=== PATIENT | female | born 1930 | race Caucasian/White ===

== ENCOUNTER → 2016-07-27 | Outpatient (REF) | payer MEDICARE, OTHER ==
[2016-07-27 12:58] LABS: BASO % 0.3 % (0.0-1.0); EOS # 0.1 K/mm3 (0.0-0.50); EOS % 2.1 % (0.0-3.0); LARGE UNSTAINED CELL # 0.2 K/mm3 (0.0-0.4); LARGE UNSTAINED CELL % 2.4 % (0.0-4.0); LYMPH # 1.7 K/mm3 (1.5-4.5); LYMPH % 27.6 % (24.0-44.0); MEAN CORPUSCULAR HEMOGLOBIN 31.2 pg (27.0-33.0); MEAN CORPUSCULAR HGB CONC 32.9 g/dl (32.0-36.5); MEAN CORPUSCULAR VOLUME 94.7 fl (80.0-96.0); MONO # 0.4 K/mm3 (0.0-0.8); MONO % 5.7 % (0.0-5.0); NEUTROPHILS # 3.8 K/mm3 (1.8-7.7); NEUTROPHILS % 61.9 % (36.0-66.0); PLATELET COUNT, AUTOMATED 344 k/mm3 (150-450); RED CELL DISTRIBUTION WIDTH 12.9 % (11.5-14.5); WHITE BLOOD COUNT 6.1 K/mm3 (4.0-10.0)
[2016-07-27 13:25] LABS: ALBUMIN 4.1 GM/DL (3.2-5.2); ALBUMIN/GLOBULIN RATIO 1.46 (1.00-1.93); ALKALINE PHOSPHATASE 85 U/L (45-117); ALT/SGPT 27 U/L (12-78); ANION GAP 9 MEQ/L (8-16); AST/SGOT 11 U/L (15-37); BILIRUBIN,TOTAL 0.6 MG/DL (0.2-1.0); BLOOD UREA NITROGEN 17 MG/DL (7-18); CALCIUM LEVEL 9.3 MG/DL (8.8-10.2); CARBON DIOXIDE LEVEL 27 MEQ/L (21-32); CHLORIDE LEVEL 105 MEQ/L (98-107); CHOLESTEROL LEVEL 215 MG/DL (<200); CREATININE FOR GFR 0.84 MG/DL (0.55-1.02); GLOMERULAR FILTRATION RATE > 60.0 (>32); GLUCOSE, FASTING 95 MG/DL (83-110); POTASSIUM SERUM 4.7 MEQ/L (3.5-5.1); SODIUM LEVEL 141 MEQ/L (136-145); TOTAL PROTEIN 6.9 GM/DL (6.4-8.2); TRIGLYCERIDES LEVEL 136 MG/DL (<150)
== END ==
LOC: M SFHCADAM 09:57
PROVIDERS: ATTEND Family Medicine
DX: Z00.00 Encounter for general adult medical examination without abnormal findings (principal); I10 Essential (primary) hypertension; E78.5 Hyperlipidemia, unspecified; Z23 Encounter for immunization; Z79.82 Long term (current) use of aspirin; Z79.899 Other long term (current) drug therapy
CPT/HCPCS: 80053; 80061; 85025; 90715; G0463

== ENCOUNTER → 2016-08-27 | Outpatient (REF) | payer MEDICARE, OTHER | LOC: M SFHCADAM 12:13 | PROVIDERS: ATTEND Family Medicine | DX: I10 Essential (primary) hypertension (principal) | CPT/HCPCS: 82043; G0463 ==

== ENCOUNTER → 2017-01-15 | Outpatient (CLI) | payer MEDICARE, OTHER ==
--- NOTE | 2017-01-15 13:05 | REP ---
CT abdomen pelvis for abdominal aortic aneurysm: Studies performed without IV and oral contrast: Comparison is 10/27/2013. There is an infrarenal abdominal aortic aneurysm today measuring 4.7 AP diameter (previously 4.0 cm). There is no periaortic hematoma. There is calcified vascular atheroma throughout the abdominal aorta as previously. The visualized lung paige are unremarkable. The unenhanced hepatic parenchyma, pancreas and spleen are normal size and unremarkable. There is a gallbladder calculus as previously. The gallbladder is otherwise unremarkable. The adrenals are unremarkable and unchanged. There are left renal cysts, unchanged. There are no masses. The right kidney is unremarkable. There is no hydronephrosis. The bowel and mesentery are unremarkable. Appendix: The appendix is unremarkable. The bladder is nondistended and cannot be evaluated. There is a hysterectomy. Vaginal cuff and adnexa are unremarkable except for phleboliths. There is no adenopathy or ascites. The pelvic bowel loops are unremarkable. There is grade 1 compression deformity of the superior endplate of the T11 vertebral body, unchanged. Impression: There is an abdominal aortic aneurysm today measuring 4.7 cm AP diameter. There is no periaortic hematoma. Signed by Erwin Sidhu MD 01/15/2017 12:56 P
== END ==
LOC: M RAD 12:03
PROVIDERS: ATTEND Surgery Vascular Surgery
DX: I71.4 Abdominal aortic aneurysm, without rupture (principal)

== ENCOUNTER 2017-09-18 08:23 | Emergency (ER) | payer MEDICARE, OTHER | END 2017-09-18 09:55 | disposition home or self-care (01) | LOC: M ED 08:23 | DX: R07.89 Other chest pain (principal); W01.190A Fall on same level from slipping, tripping and stumbling with subsequent striking against furniture, initial encounter; Y92.9 Unspecified place or not applicable; Y93.9 Activity, unspecified; I10 Essential (primary) hypertension; E78.5 Hyperlipidemia, unspecified; I71.4 Abdominal aortic aneurysm, without rupture; Z87.891 Personal history of nicotine dependence; Z79.82 Long term (current) use of aspirin; Z79.899 Other long term (current) drug therapy | CPT/HCPCS: 71046 ==

== ENCOUNTER → 2018-01-04 | Outpatient (REF) | payer MEDICARE, OTHER ==
[2018-01-04 12:46] LABS: BASO % 0.5 % (0.0-1.0); EOS # 0.1 10^3/uL (0.0-0.50); EOS % 1.5 % (0.0-3.0); HEMATOCRIT 34.5 % (36.0-47.0); HEMOGLOBIN 11.1 g/dl (12.0-15.5); IMMATURE GRANULOCYTE % 0.2 % (0-3.0); LYMPH # 1.7 10^3/uL (1.5-4.5); LYMPH % 25.3 % (24.0-44.0); MEAN CORPUSCULAR HEMOGLOBIN 29.9 pg (27.0-33.0); MEAN CORPUSCULAR HGB CONC 32.2 g/dl (32.0-36.5); MONO # 0.4 10^3/uL (0.0-0.8); MONO % 6.1 % (0.0-5.0); NEUTROPHILS # 4.4 10^3/uL (1.8-7.7); NEUTROPHILS % 66.4 % (36.0-66.0); PLATELET COUNT, AUTOMATED 313 10^3/uL (150-450); RED BLOOD COUNT 3.71 10^6/uL (4.00-5.40); RED CELL DISTRIBUTION WIDTH 14.4 % (11.5-14.5); WHITE BLOOD COUNT 6.6 10^3/uL (4.0-10.0)
[2018-01-04 13:29] LABS: ALBUMIN 3.9 GM/DL (3.2-5.2); ALKALINE PHOSPHATASE 80 U/L (45-117); ALT/SGPT 18 U/L (12-78); ANION GAP 10 MEQ/L (8-16); AST/SGOT 8 U/L (7-37); BILIRUBIN,TOTAL 0.8 MG/DL (0.2-1.0); BLOOD UREA NITROGEN 11 MG/DL (7-18); CARBON DIOXIDE LEVEL 27 MEQ/L (21-32); CHLORIDE LEVEL 99 MEQ/L (98-107); CREATININE FOR GFR 0.82 MG/DL (0.55-1.30); GLOMERULAR FILTRATION RATE > 60.0 (>32); GLUCOSE, FASTING 89 MG/DL (70-100); POTASSIUM SERUM 4.9 MEQ/L (3.5-5.1); SODIUM LEVEL 136 MEQ/L (136-145); TOTAL PROTEIN 6.5 GM/DL (6.4-8.2)
== END ==
LOC: M SFHCADAM 08:31
DX: I10 Essential (primary) hypertension (principal)
CPT/HCPCS: 80053

== ENCOUNTER → 2018-08-01 | Outpatient (REF) | payer MEDICARE, OTHER ==
[~2018-08-01] MED LIST: ASPI81TA21 PO; CART120C PO; OLME40TA PO; PRAV40TA2 PO
--- NOTE | 2018-08-01 15:01 | REP ---
PARTIAL LUMBAR SPINE, THREE VIEWS: HISTORY: Back injury. There is no acute fracture. The L4-5 and L5-S1 intervertebral discs are decreased in height consistent with degeneration. There is 6 mm of grade 1 spondylolisthesis of L4 on L5. The patient is status post stenting of an abdominal aortic aneurysm. IMPRESSION: Degenerative change as described above. Electronically Signed by Juan Hernandez MD 08/01/2018 03:09 P
== END ==
LOC: M ADAMS 11:59
PROVIDERS: ATTEND Physician Assistant
DX: M51.36 Other intervertebral disc degeneration, lumbar region (principal)

== ENCOUNTER → 2018-10-07 | Outpatient (REF) | payer MEDICARE, OTHER ==
[2018-10-07 13:21] LABS: BASO % 0.3 % (0.0-1.0); EOS % 0.5 % (0.0-3.0); HEMATOCRIT 36.3 % (36.0-47.0); HEMOGLOBIN 11.9 g/dl (12.0-15.5); LYMPH # 1.4 10^3/uL (1.5-4.5); LYMPH % 21.4 % (24.0-44.0); MEAN CORPUSCULAR HEMOGLOBIN 31.1 pg (27.0-33.0); MEAN CORPUSCULAR HGB CONC 32.8 g/dl (32.0-36.5); MEAN CORPUSCULAR VOLUME 94.8 fl (80.0-96.0); MONO # 0.4 10^3/uL (0.0-0.8); MONO % 6.2 % (0.0-5.0); NEUTROPHILS # 4.7 10^3/uL (1.8-7.7); NEUTROPHILS % 71.3 % (36.0-66.0); PLATELET COUNT, AUTOMATED 339 10^3/uL (150-450); RED BLOOD COUNT 3.83 10^6/uL (4.00-5.40); WHITE BLOOD COUNT 6.6 10^3/uL (4.0-10.0)
[2018-10-07 13:44] LABS: ALBUMIN 3.8 GM/DL (3.2-5.2); ALT/SGPT 22 U/L (12-78); BILIRUBIN,TOTAL 0.8 MG/DL (0.2-1.0); BLOOD UREA NITROGEN 11 MG/DL (7-18); CALCIUM LEVEL 9.1 MG/DL (8.8-10.2); CARBON DIOXIDE LEVEL 28 MEQ/L (21-32); CHLORIDE LEVEL 99 MEQ/L (98-107); CREATININE FOR GFR 0.79 MG/DL (0.55-1.30); FREE T4 1.11 NG/DL (0.76-1.46); GLOMERULAR FILTRATION RATE > 60.0 (>32); GLUCOSE, FASTING 103 MG/DL (70-100); POTASSIUM SERUM 4.9 MEQ/L (3.5-5.1); SODIUM LEVEL 133 MEQ/L (136-145); TOTAL PROTEIN 6.7 GM/DL (6.4-8.2); VITAMIN B12 LEVEL 361 PG/ML (247-911)
== END ==
LOC: M SFHCADAM 09:32
PROVIDERS: ATTEND Family Medicine
DX: R41.89 Other symptoms and signs involving cognitive functions and awareness (principal)
CPT/HCPCS: 80053; 82607; 84439; 84443; 85025; 86780; G0463

== ENCOUNTER 2019-07-10 12:04 | Observation (INO) | payer MEDICARE, OTHER ==
[~2019-07-10] VITALS: Ht 154.9 cm; Wt 61.4 kg
--- NOTE | 2019-07-10 12:52 | REP ---
Clinical: Trauma. Head injury. Findings: Age-related atrophy with periventricular leukomalacia and microvascular ischemic changes are appreciated. The ventricles and sulci are symmetric. Chavez-white differentiation is maintained. There is no evidence for acute intracranial hemorrhage, mass/mass effect, pathology or infarction. No extra-axial fluid collection. Calvarium is intact. Paranasal sinuses and mastoid air cells are clear. Impression: Age related atrophy and microvascular ischemic changes. No acute intracranial hemorrhage, infarction, or mass/mass effect. Electronically Signed by Parker Webber MD 07/10/2019 12:44 P
--- NOTE | 2019-07-10 12:54 | REP ---
Clinical: Trauma. Head injury. Technique: Axial noncontrast images from the skull base to the thoracic inlet with coronal and sagittal re-formations. Findings: Age-related osteopenia and advanced multilevel degenerative changes include osteophytosis, endplate sclerosis/heterogeneity, disc space narrowing, and facet arthropathy. Alignment is maintained. No obvious acute fracture / compression injury or subluxation. Spinal canal appears relatively patent. Posterior elements and spinous processes are intact. Paravertebral soft tissues within normal limits. Impression: Osteopenia and advanced multilevel degenerative spondylosis. No acute fracture / compression injury or subluxation. Electronically Signed by Parker Webber MD 07/10/2019 12:45 P
[2019-07-10] MEDS ORDERED: ACETAMINOPHEN TAB 650MG DOSE (2X325MG) PO ONE (13:15)
[2019-07-10 13:51] LABS: BASO % 0.4 % (0.0-1.0); EOS # 0.1 10^3/uL (0.0-0.5); EOS % 1.1 % (0.0-3.0); HEMATOCRIT 38.3 % (36.0-47.0); HEMOGLOBIN 12.3 g/dl (12.0-15.5); LYMPH % 18.3 % (24.0-44.0); MEAN CORPUSCULAR HEMOGLOBIN 30.5 pg (27.0-33.0); MEAN CORPUSCULAR HGB CONC 32.1 g/dl (32.0-36.5); MONO # 0.3 10^3/uL (0.0-0.8); MONO % 5.2 % (0.0-5.0); NEUTROPHILS % 74.4 % (36.0-66.0); PLATELET COUNT, AUTOMATED 334 10^3/uL (150-450); RED BLOOD COUNT 4.03 10^6/uL (4.00-5.40); WHITE BLOOD COUNT 5.4 10^3/uL (4.0-10.0)
--- NOTE | 2019-07-10 14:04 | REP ---
THORACIC SPINE SERIES: AP and lateral views of the thoracic spine performed. There is an old mild compression deformity of T5 unchanged since the lateral chest radiograph of 09/18/2017. No new fracture or dislocation is seen. There is normal thoracic kyphosis and alignment. There is moderate diffuse spurring. There is mild diffuse disc space narrowing and subchondral sclerosis. There is mild curvature toward the right. The posterior elements are intact. IMPRESSION: Degenerative changes without acute fracture or dislocation. Electronically Signed by Erwin Chavez MD 07/10/2019 02:52 P
--- NOTE | 2019-07-10 14:08 | REP ---
LUMBOSACRAL SPINE: Five views of the lumbosacral spine are performed and compared to a prior study of 08/01/2018. AP view is limited due to overlying metallic aortobiiliac stent. There is mild compression of L4 which is new compared to the prior study. Mild anterior listhesis of L4 on L5 is unchanged. No other acute fracture or dislocation is seen. There is mild diffuse spurring. There is mild disc space narrowing and subchondral sclerosis of L5-S1. There is diffuse sclerosis and spurring at the posterior facet joints. IMPRESSION: Mild compression of L4 is new compared to a prior study of 08/01/2018, exact age is indeterminate. There are mild degenerative changes as well. Electronically Signed by Erwin Chavez MD 07/10/2019 02:52 P
--- NOTE | 2019-07-10 14:08 | REP ---
PELVIS, SINGLE VIEW: Single AP view of the pelvis is performed. No fracture or dislocation is seen. There is moderate degenerative joint disease of the right hip, with moderate diffuse joint space narrowing, subchondral sclerosis, and spurring. IMPRESSION: No acute fracture or dislocation. Electronically Signed by Erwin Chavez MD 07/10/2019 02:52 P
--- NOTE | 2019-07-10 14:08 | REP ---
LEFT HIP, TWO VIEWS: There is no evidence of an acute fracture, dislocation or intrinsic bone disease. IMPRESSION: No fracture or dislocation. Electronically Signed by Erwin Chavez MD 07/10/2019 02:52 P
--- NOTE | 2019-07-10 14:09 | REP ---
LEFT LOWER LEG, AP AND LATERAL: AP and lateral views of the left lower leg performed. No acute fracture or dislocation is seen. There are mild scattered vascular calcifications in the soft tissues. IMPRESSION: No fracture or dislocation. Electronically Signed by Erwin Chavez MD 07/10/2019 02:52 P
[2019-07-10] MEDS ORDERED: LIDOCAINE 5% (LIDODERM) PATCH TD ONE (16:30)
--- NOTE | 2019-07-10 16:39 | HPE ---
DATE OF ADMISSION: 07/10/2019 PRIMARY CARE PROVIDER: Dr. Simental CHIEF COMPLAINT: L4 compression fracture. HISTORY: I was called to admit Barbara Garcia for L4 compression fraction. Per the emergency room, she has intractable pain. Per the patient, she is essentially pain-free but family members say that they do not she is able to take care of herself at home tonight. She will be admitted for observation. She has a past medical history of hyperlipidemia. She is on pravastatin 20 mg daily. Hypertensive heart disease for which she takes diltiazem and losartan. She had an abdominal aortic aneurysm repaired via endovascular stent at [facility] March 2017, last seen by them December 2018. She has a history of gastroesophageal (GE) reflux, diverticulosis status post partial colon resection, colonoscopy November 2013 with normal anastomosis and no polyps. ALLERGIES: None known. MEDICATIONS: - aspirin 81 mg daily - pravastatin 20 mg daily - diltiazem extended release 120 mg daily - losartan 50 mg daily PAST SURGICAL HISTORY: Hysterectomy, partial colectomy, abdominal aortic aneurysm endovascular repair in March 2017, colonoscopy November 2013. FAMILY HISTORY: Noncontributory. She is 88. SOCIAL HISTORY: She quit smoking many years ago. She lives alone and has an attentive family. No alcohol. REVIEW OF SYSTEMS: No trouble with bowels or bladder. She apparently slipped and fell causing the fracture. She does not have any history of falls. She underwent fall risk screening five days ago and fall risk was low. PHYSICAL EXAMINATION: Blood pressure 170/87, pulse of 81, respiratory rate 18, 97 degrees, 97% oxygen saturation. Blood pressure when she was in our office, not in pain from the fracture, was 128/74. GENERAL APPEARANCE: Elderly, frail, lying in bed, in no distress, alert and conversant. HEENT: Unremarkable. LUNGS: Clear. HEART: Regular rate and rhythm. There is a systolic ejection murmur. ABDOMEN: Soft, nontender. No masses. Low back is nontender to palpate. Normal strength in the legs. Normal sensation in the legs. Good distal pulses. No peripheral edema. LABORATORY DATA: CBC unremarkable. Electrolytes: Sodium 143, potassium 5, BUN 13, creatinine 0.7. Lumbosacral spine film shows a new mild compression fracture of L4. X-rays of the left hip, pelvis, thoracic spine, left tibia/fibula, cervical spine do not show any further fractures. CT of the head shows atrophy which is age appropriate. IMPRESSION: 1. Mild L4 compression fracture. The patient is being admitted to an observation bed. She indicates to me that she is not having any pain but family members indicate that she is and they feel that she would be safer admitted overnight. I will order a Lidoderm patch to her lumbar spine area, start Miacalcin spray, order physical therapy, anticipate discharge in the morning. 2. Hypertension. Her blood pressure was elevated in the emergency room. I think this is situational. Blood pressure control in the office on her current regimen is excellent with her last five recorded blood pressures being between 120 and 140 over 70-80. Therefore, I am not adjusting her medications. 3. Hyperlipidemia. Continue pravastatin.
[2019-07-10] MEDS ORDERED: LOSA50TA88 PO (16:52)
[2019-07-10] MEDS ORDERED: PRAV20TA2 PO (16:52)
[2019-07-10] MEDS ORDERED: PRES10CA2 PO (16:53)
[2019-07-10 18:15] VITALS: BP 116/110
[2019-07-10 22:04] VITALS: BP 152/80
[2019-07-10] MEDS: ACETAMINOPHEN 500 MG TAB PO PRN (22:52)
[2019-07-11] MEDS ORDERED: **NOTE PATIENT COMMENT** MISC XX SCH (06:00)
[2019-07-11 06:24] VITALS: BP 134/70
[2019-07-11 07:23] LABS: HEMATOCRIT 36.4 % (36.0-47.0); HEMOGLOBIN 11.4 g/dl (12.0-15.5); MEAN CORPUSCULAR HEMOGLOBIN 29.7 pg (27.0-33.0); MEAN CORPUSCULAR HGB CONC 31.3 g/dl (32.0-36.5); MEAN CORPUSCULAR VOLUME 94.8 fl (80.0-96.0); PLATELET COUNT, AUTOMATED 306 10^3/uL (150-450); RED BLOOD COUNT 3.84 10^6/uL (4.00-5.40); WHITE BLOOD COUNT 4.6 10^3/uL (4.0-10.0)
[2019-07-11 07:41] LABS: BLOOD UREA NITROGEN 9 MG/DL (7-18); CALCIUM LEVEL 8.7 MG/DL (8.8-10.2); CARBON DIOXIDE LEVEL 29 MEQ/L (21-32); CHLORIDE LEVEL 103 MEQ/L (98-107); CREATININE FOR GFR 0.71 MG/DL (0.55-1.30); GLOMERULAR FILTRATION RATE > 60.0 (>32); GLUCOSE, FASTING 89 MG/DL (70-100); POTASSIUM SERUM 3.6 MEQ/L (3.5-5.1); SODIUM LEVEL 138 MEQ/L (136-145)
[2019-07-11] MEDS ORDERED: LIDOCAINE 5% (LIDODERM) PATCH TD SCH (09:00)
[2019-07-11] MEDS: CALCITONIN NASAL SPRAY 3.7 ML BTL SCH (09:56)
[2019-07-11] MEDS: LOSARTAN 50 MG TAB PO SCH (09:57)
--- NOTE | 2019-07-11 11:18 | IPNPDOC ---
Text Note Date of Service The patient was seen on 07/11/19. NOTE SUBJECTIVE: Patient is examined today, she stated that she had very minimal back pain, denied any chest pain, denies any breathing difficulty, had no over night activities OBJECTIVE: PHYSICAL EXAMINATION: GENERAL APPEARANCE: Alert no acute distress. Elderly female, resting comfortably in bed. HEART: Normal S1, S2. No murmurs, no rubs, no gallops ABDOMEN: Soft. No masses. Bowel sounds are present. TRUNK/SPINE:Straight. EXTREMITIES: Moves all extremities equally. No gross deformities. LABORATORY DATA: Please see below. IMAGING: Lumbosacral spine film shows a new mild compression fracture of L4. X-rays of the left hip, pelvis, thoracic spine, left tibia/fibula, cervical spine do not show any further fractures. CT of the head shows atrophy which is age appropriate. ASSEMENT AND PLAN: Patient is a 88-year-old female with a past medical history significant for hypertensive heart disease, hyperlipidemia, reflux, diverticulosis, admitted for intractable pain due to L4 compression fracture. Mild L4 compression fracture. --Pain control with Lidoderm patch, as well as Miacalcin spray, and Tylenol --Home safety evaluation was performed by physical therapy today, it was recommended patient will need 24-hour home care, will attempt to coordinate this prior to discharge. #Hypertension. -Continue home medication #Hyperlipidemia. -Continue home medication #DVT -TEDS VS,Fishbone, I+O VS, Fishbone, I+O Laboratory Tests 07/10/19 13:21 07/11/19 06:57 Vital Signs Date Time Temp Pulse Resp B/P (MAP) Pulse Ox O2 Delivery O2 Flow Rate FiO2 07/11/19 09:57 69 134/70 07/11/19 06:24 97.1 18 98 Room Air I&O- Last 24 Hours up to 6 AM 07/11/19 06:00 Intake Total 330 ml Output Total 0 ml Balance 330 ml GME ATTESTATION GME ATTESTATION My faculty preceptor for this patient encounter was physically present during the encounter and was fully available. All aspects of the patient interview, examination, medical decision making process, and medical care plan development were reviewed and approved by the faculty preceptor. The faculty preceptor is aware and concurs with the plan as stated in the body of this note and will attest to such by his/her cosignature. KADEN MARLOW DO Jul 11, 2019 11:18
[2019-07-11 14:00] VITALS: BP 139/69
[2019-07-11] MEDS ORDERED: LIDO1.1P TOP (14:04)
[2019-07-11] MEDS ORDERED: CALC20SPR (14:09)
[2019-07-11] MEDS: ACETAMINOPHEN 500 MG TAB PO PRN (15:49)
[2019-07-11] MEDS: LIDOCAINE 5% (LIDODERM) PATCH TD SCH (20:55)
[2019-07-11] MEDS: PRAVASTATIN 20 MG TAB PO SCH (20:55)
[2019-07-11 22:00] VITALS: BP 136/68
[2019-07-12 06:00] VITALS: BP 139/79
[2019-07-12] MEDS: ACETAMINOPHEN 500 MG TAB PO PRN ×3 (06:17→20:18)
[2019-07-12] MEDS: CALCITONIN NASAL SPRAY 3.7 ML BTL SCH (08:51)
[2019-07-12] MEDS: LOSARTAN 50 MG TAB PO SCH (08:52)
[2019-07-12] MEDS: **NOTE PATIENT COMMENT** MISC XX SCH (08:54)
[2019-07-12] MEDS: ANALGESIC BALM CRM 120 GM TOP SCH ×3 (13:21→20:17)
[2019-07-12 14:00] VITALS: BP 141/73
--- NOTE | 2019-07-12 14:03 | IPNPDOC ---
Text Note Date of Service The patient was seen on 07/12/19. NOTE SUBJECTIVE: Patient was examined in her room. She complained of significant back pain. She stated that she is able to walk around, and that helps her pain. She rated her pain 10 out of 10 on pain scale. OBJECTIVE: PHYSICAL EXAMINATION: GENERAL APPEARANCE: Pleasant elderly female, sitting comfortably in a chair, speaking on the phone, HEART: Normal S1, S2. No murmurs, no rubs, no gallops ABDOMEN: Soft. No masses. Bowel sounds are present. TRUNK/SPINE:Straight. EXTREMITIES: Moves all extremities equally. No gross deformities. LABORATORY DATA: Please see below. IMAGING: Lumbosacral spine film shows a new mild compression fracture of L4. X-rays of the left hip, pelvis, thoracic spine, left tibia/fibula, cervical spine do not show any further fractures. CT of the head shows atrophy which is age appropriate. ASSEMENT AND PLAN: Patient is a 88-year-old female with a past medical history significant for hypertensive heart disease, hyperlipidemia, reflux, diverticulosis, admitted for intractable pain due to L4 compression fracture. Mild L4 compression fracture. --Pain control with Lidoderm patch, as well as Miacalcin spray, and Tylenol --Added daytime BenGay 3 times a day to her back pain regimen. --Home safety evaluation was performed by physical therapy today, it was recommended patient will need 24-hour home care --Family expressed a desire to with meet with [facility], to discuss placement, however patient does not appear to be receptive to that idea. Family is under the expectation that Medicare will cover 24-hour in-home healthcare, this was explained to patient that it was not a possibility. Attending, Dr. Soto encourage family to come together and schedule who is willing to stay with the patient, the suggestion was not met with enthusiasm #Hypertension. -Continue home medication #Hyperlipidemia. -Continue home medication #DVT -TEDS Disposition --Likely discharge tomorrow if patient family is agreeable Blank MARTINES, I+O VSBlank, I+O Vital Signs Date Time Temp Pulse Resp B/P (MAP) Pulse Ox O2 Delivery O2 Flow Rate FiO2 07/12/19 08:51 76 139/68 07/12/19 06:00 97.6 18 99 Room Air I&O- Last 24 Hours up to 6 AM 07/12/19 06:00 Intake Total 1270 ml Balance 1270 ml GME ATTESTATION GME ATTESTATION My faculty preceptor for this patient encounter was physically present during the encounter and was fully available. All aspects of the patient interview, examination, medical decision making process, and medical care plan development were reviewed and approved by the faculty preceptor. The faculty preceptor is aware and concurs with the plan as stated in the body of this note and will attest to such by his/her cosignature. KADEN MARLOW DO Jul 12, 2019 14:03
[2019-07-12] MEDS: PRAVASTATIN 20 MG TAB PO SCH (20:18)
[2019-07-12] MEDS: LIDOCAINE 5% (LIDODERM) PATCH TD SCH (20:19)
[2019-07-12 20:28] VITALS: BP 141/76
[2019-07-13 06:39] VITALS: BP 132/72
[2019-07-13] MEDS: ACETAMINOPHEN 500 MG TAB PO PRN (07:53)
[2019-07-13] MEDS: LIDOCAINE 5% (LIDODERM) PATCH TD SCH (07:53)
[2019-07-13 08:54] VITALS: BP 132/72
[2019-07-13] MEDS: LOSARTAN 50 MG TAB PO SCH (08:54)
[2019-07-13] MEDS: ANALGESIC BALM CRM 120 GM TOP SCH (08:55)
[2019-07-13] MEDS: CALCITONIN NASAL SPRAY 3.7 ML BTL SCH (08:55)
[2019-07-13] MEDS: **NOTE PATIENT COMMENT** MISC XX SCH (08:56)
--- NOTE | 2019-07-13 16:56 | DSES ---
DATE OF ADMISSION: 07/10/2019 DATE OF DISCHARGE: 07/13/2019 HISTORY OF PRESENT ILLNESS: This is an 88-year-old female who presented to [facility] with complaints of intractable back pain. It was found that patient had a mild L4 compression fracture. Pain was well controlled; however, family members were concerned about her mobility and safety. .She was subsequently admitted. Patient was evaluated by physical therapy and determined that she is in need of 24-hour care. Patient's hospitalization was rather uneventful. Patient's family has arranged care within the home for patient to have continuous assistance. ASSESSMENT/DISCHARGE DIAGNOSES: 1. L4 compression fracture. 2. Intractable back pain. SECONDARY DIAGNOSES: 1. Hypertension. 2. Hyperlipidemia. PLAN: Patient will be discharged home. Diet is as tolerated. Activity is as tolerated with continuous monitoring by family or hired caregiver support. She will followup with her primary care physician (PCP) within the next 3-5 days. MEDICATIONS: - calcitonin spray one spray daily - Lidoderm patch one application daily - aspirin 81 mg daily - diltiazem 120 mg daily - losartan 50 mg daily - pravastatin 20 mg daily - PreserVision - multivitamin one capsule daily Patient is discharged in stable and satisfactory condition with no further questions at time of discharge.
== END 2019-07-13 12:10 | disposition home health service (06) ==
LOC: EDBD 12:04 → M ED 12:04 → M ED INP 12:05 → M MS5PR 18:05
PROVIDERS: ADMIT Family Medicine; ATTEND Family Medicine
DX: S32.040A Wedge compression fracture of fourth lumbar vertebra, initial encounter for closed fracture (principal); W01.198A Fall on same level from slipping, tripping and stumbling with subsequent striking against other object, initial encounter; Y92.098 Other place in other non-institutional residence as the place of occurrence of the external cause; M54.9 Dorsalgia, unspecified; I67.82 Cerebral ischemia; I10 Essential (primary) hypertension; E78.5 Hyperlipidemia, unspecified; K21.9 Gastro-esophageal reflux disease without esophagitis; K57.90 Diverticulosis of intestine, part unspecified, without perforation or abscess without bleeding; Z90.49 Acquired absence of other specified parts of digestive tract; Z79.899 Other long term (current) drug therapy; Z79.82 Long term (current) use of aspirin
CPT/HCPCS: 36415; 70450; 72072; 72110; 72125; 72170; 73502; 73590; 80047; 80048; 85025; 85027; 97116; 97161; 99285; G0378

== ENCOUNTER → 2019-09-27 | Outpatient (REF) ==
[~2019-09-27] MED LIST changes: +CALC20SPR; +LIDO1.1P TOP; +LOSA50TA88 PO; +PRAV20TA2 PO; +PRES10CA2 PO
[2019-09-27 11:19] LABS: HEMATOCRIT 38.6 % (36.0-47.0); HEMOGLOBIN 12.1 g/dl (12.0-15.5); MEAN CORPUSCULAR HEMOGLOBIN 29.9 pg (27.0-33.0); MEAN CORPUSCULAR HGB CONC 31.3 g/dl (32.0-36.5); MEAN CORPUSCULAR VOLUME 95.3 fl (80.0-96.0); PLATELET COUNT, AUTOMATED 385 10^3/uL (150-450); RED BLOOD COUNT 4.05 10^6/uL (4.00-5.40); WHITE BLOOD COUNT 7.8 10^3/uL (4.0-10.0)
[2019-09-27 11:39] LABS: BLOOD UREA NITROGEN 16 MG/DL (7-18); CALCIUM LEVEL 9.4 MG/DL (8.8-10.2); CARBON DIOXIDE LEVEL 28 MEQ/L (21-32); CHLORIDE LEVEL 102 MEQ/L (98-107); CREATININE FOR GFR 0.76 MG/DL (0.55-1.30); GLOMERULAR FILTRATION RATE > 60.0 (>32); GLUCOSE, FASTING 89 MG/DL (70-100); POTASSIUM SERUM 3.9 MEQ/L (3.5-5.1); SODIUM LEVEL 137 MEQ/L (136-145)
== END ==
PROVIDERS: ATTEND Internal Medicine
DX: I10 Essential (primary) hypertension (principal)

== ENCOUNTER → 2019-10-09 | Outpatient (REF) ==
[2019-10-09 09:52] LABS: HEMATOCRIT 34.6 % (36.0-47.0); MEAN CORPUSCULAR HEMOGLOBIN 30.6 pg (27.0-33.0); MEAN CORPUSCULAR HGB CONC 31.8 g/dl (32.0-36.5); MEAN CORPUSCULAR VOLUME 96.1 fl (80.0-96.0); PLATELET COUNT, AUTOMATED 298 10^3/uL (150-450); WHITE BLOOD COUNT 5.7 10^3/uL (4.0-10.0)
[2019-10-09 10:04] LABS: BLOOD UREA NITROGEN 15 MG/DL (7-18); CALCIUM LEVEL 8.7 MG/DL (8.8-10.2); CARBON DIOXIDE LEVEL 30 MEQ/L (21-32); CHLORIDE LEVEL 107 MEQ/L (98-107); CREATININE FOR GFR 0.65 MG/DL (0.55-1.30); GLOMERULAR FILTRATION RATE > 60.0 (>32); GLUCOSE, FASTING 78 MG/DL (70-100); POTASSIUM SERUM 4.6 MEQ/L (3.5-5.1); SODIUM LEVEL 139 MEQ/L (136-145)
== END ==
PROVIDERS: ATTEND Internal Medicine
DX: I10 Essential (primary) hypertension (principal)

== ENCOUNTER → 2019-11-27 | Outpatient (REF) | payer MEDICARE | LOC: SKLAB8 14:30 | PROVIDERS: ATTEND Internal Medicine | DX: N39.0 Urinary tract infection, site not specified (principal) ==

== ENCOUNTER → 2019-11-28 | Outpatient (REF) | payer MEDICARE ==
[2019-11-28 08:45] LABS: HEMATOCRIT 33.7 % (36.0-47.0); HEMOGLOBIN 10.7 g/dl (12.0-15.5); MEAN CORPUSCULAR HEMOGLOBIN 30.2 pg (27.0-33.0); MEAN CORPUSCULAR HGB CONC 31.8 g/dl (32.0-36.5); MEAN CORPUSCULAR VOLUME 95.2 fl (80.0-96.0); PLATELET COUNT, AUTOMATED 357 10^3/uL (150-450); RED BLOOD COUNT 3.54 10^6/uL (4.00-5.40); WHITE BLOOD COUNT 6.1 10^3/uL (4.0-10.0)
[2019-11-28 09:10] LABS: BLOOD UREA NITROGEN 17 MG/DL (7-18); CALCIUM LEVEL 9.1 MG/DL (8.8-10.2); CARBON DIOXIDE LEVEL 28 MEQ/L (21-32); CHLORIDE LEVEL 105 MEQ/L (98-107); CREATININE FOR GFR 0.66 MG/DL (0.55-1.30); GLOMERULAR FILTRATION RATE > 60.0 (>32); GLUCOSE, FASTING 86 MG/DL (70-100); POTASSIUM SERUM 3.8 MEQ/L (3.5-5.1); SODIUM LEVEL 138 MEQ/L (136-145)
== END ==
LOC: SKLAB8 07:00
PROVIDERS: ATTEND Internal Medicine
DX: N39.0 Urinary tract infection, site not specified (principal)

== ENCOUNTER → 2019-12-07 | Outpatient (REF) | payer MEDICARE ==
[2019-12-07 08:32] LABS: HEMATOCRIT 33.3 % (36.0-47.0); HEMOGLOBIN 10.4 g/dl (12.0-15.5); MEAN CORPUSCULAR HEMOGLOBIN 29.9 pg (27.0-33.0); MEAN CORPUSCULAR HGB CONC 31.2 g/dl (32.0-36.5); MEAN CORPUSCULAR VOLUME 95.7 fl (80.0-96.0); PLATELET COUNT, AUTOMATED 355 10^3/uL (150-450); RED BLOOD COUNT 3.48 10^6/uL (4.00-5.40); WHITE BLOOD COUNT 6.2 10^3/uL (4.0-10.0)
[2019-12-07 08:53] LABS: ALBUMIN 3.2 GM/DL (3.2-5.2); ALT/SGPT 16 U/L (12-78); BILIRUBIN,TOTAL 0.7 MG/DL (0.2-1.0); BLOOD UREA NITROGEN 12 MG/DL (7-18); CALCIUM LEVEL 8.7 MG/DL (8.8-10.2); CARBON DIOXIDE LEVEL 29 MEQ/L (21-32); CHLORIDE LEVEL 104 MEQ/L (98-107); CREATININE FOR GFR 0.68 MG/DL (0.55-1.30); GLOMERULAR FILTRATION RATE > 60.0 (>32); GLUCOSE, FASTING 81 MG/DL (70-100); POTASSIUM SERUM 3.7 MEQ/L (3.5-5.1); SODIUM LEVEL 140 MEQ/L (136-145); TOTAL PROTEIN 6.4 GM/DL (6.4-8.2)
== END ==
LOC: SKLAB8 07:00
PROVIDERS: ATTEND Internal Medicine

== ENCOUNTER → 2020-03-07 | Outpatient (REF) | payer MEDICARE ==
[2020-03-07 13:10] LABS: HEMATOCRIT 34.9 % (36.0-47.0); MEAN CORPUSCULAR HEMOGLOBIN 29.3 pg (27.0-33.0); MEAN CORPUSCULAR HGB CONC 31.5 g/dl (32.0-36.5); MEAN CORPUSCULAR VOLUME 93.1 fl (80.0-96.0); PLATELET COUNT, AUTOMATED 333 10^3/uL (150-450); RED BLOOD COUNT 3.75 10^6/uL (4.00-5.40)
[2020-03-07 13:36] LABS: ALBUMIN 3.6 GM/DL (3.2-5.2); ALT/SGPT 20 U/L (12-78); BILIRUBIN,TOTAL 0.6 MG/DL (0.2-1.0); BLOOD UREA NITROGEN 16 MG/DL (7-18); CARBON DIOXIDE LEVEL 28 MEQ/L (21-32); CHLORIDE LEVEL 105 MEQ/L (98-107); CREATININE FOR GFR 0.73 MG/DL (0.55-1.30); GLOMERULAR FILTRATION RATE > 60.0 (>32); GLUCOSE, FASTING 85 MG/DL (70-100); POTASSIUM SERUM 4.4 MEQ/L (3.5-5.1); SODIUM LEVEL 137 MEQ/L (136-145); TOTAL PROTEIN 6.8 GM/DL (6.4-8.2)
== END ==
LOC: SKLAB8 07:00
PROVIDERS: ATTEND Internal Medicine
DX: I10 Essential (primary) hypertension (principal); F03.90 Unspecified dementia, unspecified severity, without behavioral disturbance, psychotic disturbance, mood disturbance, and anxiety

== ENCOUNTER → 2020-06-05 | Outpatient (REF) | payer MEDICARE | LOC: SKLAB8 06-04 13:51 → EDSTATUS 07-12 14:58 | PROVIDERS: ATTEND Internal Medicine | DX: Z20.828 Contact with and (suspected) exposure to other viral communicable diseases (principal) ==

== ENCOUNTER → 2020-06-06 | Outpatient (REF) | payer MEDICARE ==
[2020-06-06 11:11] LABS: HEMATOCRIT 37.4 % (36.0-47.0); HEMOGLOBIN 11.5 g/dl (12.0-15.5); MEAN CORPUSCULAR HEMOGLOBIN 29.3 pg (27.0-33.0); MEAN CORPUSCULAR HGB CONC 30.7 g/dl (32.0-36.5); MEAN CORPUSCULAR VOLUME 95.4 fl (80.0-96.0); PLATELET COUNT, AUTOMATED 332 10^3/uL (150-450); RED BLOOD COUNT 3.92 10^6/uL (4.00-5.40); WHITE BLOOD COUNT 6.7 10^3/uL (4.0-10.0)
[2020-06-06 11:40] LABS: ALBUMIN 3.6 GM/DL (3.2-5.2); ALT/SGPT 24 U/L (12-78); BILIRUBIN,TOTAL 0.6 MG/DL (0.2-1.0); BLOOD UREA NITROGEN 21 MG/DL (7-18); CALCIUM LEVEL 9.3 MG/DL (8.8-10.2); CARBON DIOXIDE LEVEL 28 MEQ/L (21-32); CHLORIDE LEVEL 105 MEQ/L (98-107); CREATININE FOR GFR 0.82 MG/DL (0.55-1.30); GLOMERULAR FILTRATION RATE > 60.0 (>32); GLUCOSE, FASTING 106 MG/DL (70-100); POTASSIUM SERUM 4.3 MEQ/L (3.5-5.1); SODIUM LEVEL 139 MEQ/L (136-145); TOTAL PROTEIN 6.6 GM/DL (6.4-8.2)
== END ==
LOC: SKLAB8 07:00
PROVIDERS: ATTEND Internal Medicine
DX: F03.90 Unspecified dementia, unspecified severity, without behavioral disturbance, psychotic disturbance, mood disturbance, and anxiety (principal); I10 Essential (primary) hypertension

== ENCOUNTER → 2020-06-06 | Outpatient (REF) | payer MEDICARE ==
[2020-06-06 14:03] LABS: AMORPHOUS SEDIMENT SMALL (NEGATIVE); APPEARANCE, URINE HAZY (CLEAR); BACTERIA, URINE AUTO 2+ (NEGATIVE); BILIRUBIN, URINE AUTO NEGATIVE (NEGATIVE); BLOOD, URINE BLOOD NEGATIVE (NEGATIVE); COLOR, URINE YELLOW (YELLOW); GLUCOSE, URINE (UA) AUTO NEGATIVE (NEGATIVE); KETONE, URINE AUTO NEGATIVE (NEGATIVE); LEUKOCYTE ESTERASE, URINE AUTO 1+ (NEGATIVE); MUCUS, URINE SMALL (NEGATIVE); NITRITE, URINE AUTO NEGATIVE (NEGATIVE); PROTEIN, URINE AUTO NEGATIVE (NEGATIVE); RBC, URINE AUTO 2 /HPF (0-3); SPECIFIC GRAVITY URINE AUTO 1.011 (1.002-1.035); SQUAMOUS EPITHELIAL CELL UR AU 0 /HPF (0-6); UROBILINOGEN, URINE AUTO 0.2 mg/dL (0.0-2.0); WBC, URINE AUTO 2 /HPF (0-3)
== END ==
LOC: SKLAB8 06-05 10:00
PROVIDERS: ATTEND Internal Medicine
DX: R30.0 Dysuria (principal)

== ENCOUNTER → 2020-06-12 | Outpatient (REF) | payer MEDICARE ==
[2020-06-12 10:52] LABS: INFLUENZA A AMPLIFICATION NEGATIVE (NEGATIVE); INFLUENZA B AMPLIFICATION NEGATIVE (NEGATIVE)
== END ==
LOC: SKLAB8 08:00
PROVIDERS: ATTEND Internal Medicine
DX: Z20.828 Contact with and (suspected) exposure to other viral communicable diseases (principal)
CPT/HCPCS: 87502; U0003

== ENCOUNTER → 2020-06-19 | Outpatient (REF) | payer MEDICARE | LOC: SKLAB8 08:00 | PROVIDERS: ATTEND Internal Medicine | DX: Z20.828 Contact with and (suspected) exposure to other viral communicable diseases (principal) ==

== ENCOUNTER → 2020-06-22 | Outpatient (REF) | payer MEDICARE | LOC: SKLAB8 08:00 | PROVIDERS: ATTEND Internal Medicine | DX: Z20.828 Contact with and (suspected) exposure to other viral communicable diseases (principal) ==

== ENCOUNTER → 2020-06-23 | Outpatient (REF) | payer MEDICARE ==
[2020-06-23 11:50] LABS: HEMATOCRIT 34.7 % (36.0-47.0); HEMOGLOBIN 10.6 g/dl (12.0-15.5); MEAN CORPUSCULAR HEMOGLOBIN 28.6 pg (27.0-33.0); MEAN CORPUSCULAR HGB CONC 30.5 g/dl (32.0-36.5); MEAN CORPUSCULAR VOLUME 93.5 fl (80.0-96.0); PLATELET COUNT, AUTOMATED 326 10^3/uL (150-450); RED BLOOD COUNT 3.71 10^6/uL (4.00-5.40); WHITE BLOOD COUNT 9.7 10^3/uL (4.0-10.0)
[2020-06-23 12:25] LABS: ALBUMIN 3.6 GM/DL (3.2-5.2); ALT/SGPT 22 U/L (12-78); BILIRUBIN,TOTAL 0.6 MG/DL (0.2-1.0); BLOOD UREA NITROGEN 16 MG/DL (7-18); CALCIUM LEVEL 9.1 MG/DL (8.8-10.2); CARBON DIOXIDE LEVEL 26 MEQ/L (21-32); CHLORIDE LEVEL 107 MEQ/L (98-107); CREATININE FOR GFR 0.78 MG/DL (0.55-1.30); GLOMERULAR FILTRATION RATE > 60.0 (>32); GLUCOSE, FASTING 86 MG/DL (70-100); POTASSIUM SERUM 3.8 MEQ/L (3.5-5.1); SODIUM LEVEL 139 MEQ/L (136-145); TOTAL PROTEIN 6.8 GM/DL (6.4-8.2)
== END ==
LOC: SKLAB8 03:49
PROVIDERS: ATTEND Internal Medicine
DX: R19.7 Diarrhea, unspecified (principal)

== ENCOUNTER → 2020-06-24 | Outpatient (REF) | payer MEDICARE | LOC: SKLAB8 07:00 | PROVIDERS: ATTEND Internal Medicine | DX: R07.0 Pain in throat (principal) ==

== ENCOUNTER → 2020-06-26 | Outpatient (REF) | payer MEDICARE | LOC: SKLAB8 11:00 | PROVIDERS: ATTEND Internal Medicine | DX: Z20.828 Contact with and (suspected) exposure to other viral communicable diseases (principal) ==

== ENCOUNTER → 2020-07-03 | Outpatient (REF) | payer MEDICARE | LOC: SKLAB8 10:03 | PROVIDERS: ATTEND Internal Medicine | DX: Z20.828 Contact with and (suspected) exposure to other viral communicable diseases (principal) ==

== ENCOUNTER → 2020-07-10 | Outpatient (REF) | payer MEDICARE | LOC: SKLAB8 10:00 | PROVIDERS: ATTEND Internal Medicine | DX: Z20.828 Contact with and (suspected) exposure to other viral communicable diseases (principal) ==

== ENCOUNTER → 2020-07-17 | Outpatient (REF) | payer MEDICARE | LOC: SKLAB8 10:00 | PROVIDERS: ATTEND Internal Medicine | DX: Z20.828 Contact with and (suspected) exposure to other viral communicable diseases (principal) ==

== ENCOUNTER → 2020-07-24 | Outpatient (REF) | payer MEDICARE | LOC: SKLAB8 10:00 | PROVIDERS: ATTEND Internal Medicine | DX: Z11.52 Encounter for screening for COVID-19 (principal) ==

== ENCOUNTER → 2020-07-31 | Outpatient (REF) | payer MEDICARE | LOC: SKLAB8 10:00 | PROVIDERS: ATTEND Internal Medicine | DX: Z20.822 Contact with and (suspected) exposure to COVID-19 (principal) ==

== ENCOUNTER → 2020-08-07 | Outpatient (REF) | payer MEDICARE | LOC: SKLAB8 09:00 | PROVIDERS: ATTEND Internal Medicine | DX: Z20.822 Contact with and (suspected) exposure to COVID-19 (principal) ==

== ENCOUNTER → 2020-08-14 | Outpatient (REF) | payer MEDICARE | LOC: SKLAB8 10:00 | PROVIDERS: ATTEND Internal Medicine | DX: Z20.822 Contact with and (suspected) exposure to COVID-19 (principal) ==

== ENCOUNTER → 2020-08-21 | Outpatient (REF) | payer MEDICARE | LOC: SKLAB8 10:30 | PROVIDERS: ATTEND Internal Medicine | DX: Z20.822 Contact with and (suspected) exposure to COVID-19 (principal) ==

== ENCOUNTER → 2020-08-28 | Outpatient (REF) | payer MEDICARE | LOC: SKLAB8 09:00 | PROVIDERS: ATTEND Internal Medicine | DX: Z20.822 Contact with and (suspected) exposure to COVID-19 (principal) ==

== ENCOUNTER → 2020-09-04 | Outpatient (REF) | payer MEDICARE | LOC: SKLAB8 09:00 | PROVIDERS: ATTEND Internal Medicine | DX: Z20.822 Contact with and (suspected) exposure to COVID-19 (principal) ==

== ENCOUNTER → 2020-09-10 | Outpatient (REF) | payer MEDICARE ==
[2020-09-10 10:48] LABS: HEMATOCRIT 36.3 % (36.0-47.0); HEMOGLOBIN 11.4 g/dl (12.0-15.5); MEAN CORPUSCULAR HEMOGLOBIN 28.7 pg (27.0-33.0); MEAN CORPUSCULAR HGB CONC 31.4 g/dl (32.0-36.5); MEAN CORPUSCULAR VOLUME 91.4 fl (80.0-96.0); PLATELET COUNT, AUTOMATED 319 10^3/uL (150-450); RED BLOOD COUNT 3.97 10^6/uL (4.00-5.40); WHITE BLOOD COUNT 6.1 10^3/uL (4.0-10.0)
[2020-09-10 11:14] LABS: ALBUMIN 3.6 GM/DL (3.2-5.2); ALT/SGPT 21 U/L (12-78); BILIRUBIN,TOTAL 0.8 MG/DL (0.2-1.0); BLOOD UREA NITROGEN 19 MG/DL (7-18); CALCIUM LEVEL 9.4 MG/DL (8.8-10.2); CARBON DIOXIDE LEVEL 28 MEQ/L (21-32); CHLORIDE LEVEL 105 MEQ/L (98-107); CREATININE FOR GFR 0.86 MG/DL (0.55-1.30); GLOMERULAR FILTRATION RATE > 60.0 (>32); GLUCOSE, FASTING 92 MG/DL (70-100); POTASSIUM SERUM 4.1 MEQ/L (3.5-5.1); SODIUM LEVEL 140 MEQ/L (136-145); TOTAL PROTEIN 6.7 GM/DL (6.4-8.2)
== END ==
LOC: SKLAB8 07:00
PROVIDERS: ATTEND Internal Medicine
DX: F03.90 Unspecified dementia, unspecified severity, without behavioral disturbance, psychotic disturbance, mood disturbance, and anxiety (principal); I10 Essential (primary) hypertension

== ENCOUNTER → 2020-09-11 | Outpatient (REF) | payer MEDICARE | LOC: SKLAB8 10:00 | PROVIDERS: ATTEND Internal Medicine | DX: Z20.822 Contact with and (suspected) exposure to COVID-19 (principal) ==

== ENCOUNTER → 2020-09-25 | Outpatient (REF) | payer MEDICARE | LOC: SKLAB8 09:00 | PROVIDERS: ATTEND Internal Medicine | DX: Z20.822 Contact with and (suspected) exposure to COVID-19 (principal) ==

== ENCOUNTER → 2020-10-02 | Outpatient (REF) | payer MEDICARE | LOC: SKLAB8 10:00 | PROVIDERS: ATTEND Internal Medicine | DX: Z20.822 Contact with and (suspected) exposure to COVID-19 (principal) ==

== ENCOUNTER → 2020-10-18 | Outpatient (REF) | payer MEDICARE | LOC: SKLAB8 08:00 | PROVIDERS: ATTEND Internal Medicine | DX: Z20.822 Contact with and (suspected) exposure to COVID-19 (principal) ==

== ENCOUNTER → 2021-03-06 | Outpatient (REF) | payer MEDICARE ==
[2021-03-06 09:15] LABS: HEMATOCRIT 38.1 % (36.0-47.0); HEMOGLOBIN 11.8 g/dl (12.0-15.5); MEAN CORPUSCULAR HEMOGLOBIN 29.2 pg (27.0-33.0); MEAN CORPUSCULAR VOLUME 94.3 fl (80.0-96.0); PLATELET COUNT, AUTOMATED 301 10^3/uL (150-450); RED BLOOD COUNT 4.04 10^6/uL (4.00-5.40); WHITE BLOOD COUNT 5.6 10^3/uL (4.0-10.0)
[2021-03-06 09:40] LABS: ALBUMIN 3.6 GM/DL (3.2-5.2); ALT/SGPT 23 U/L (12-78); BILIRUBIN,TOTAL 0.8 MG/DL (0.2-1.0); BLOOD UREA NITROGEN 17 MG/DL (7-18); CALCIUM LEVEL 9.1 MG/DL (8.8-10.2); CARBON DIOXIDE LEVEL 25 MEQ/L (21-32); CHLORIDE LEVEL 108 MEQ/L (98-107); CREATININE FOR GFR 0.84 MG/DL (0.55-1.30); GLOMERULAR FILTRATION RATE > 60.0 (>32); GLUCOSE, FASTING 111 MG/DL (70-100); PHOSPHORUS LEVEL 2.9 MG/DL (2.5-4.9); SODIUM LEVEL 141 MEQ/L (136-145); TOTAL PROTEIN 6.7 GM/DL (6.4-8.2)
[2021-03-06 11:41] LABS: PTH INTACT 49.6 PG/ML (18.5-88.0); TOTAL 25(OH) VITAMIN D 27.2 NG/ML (30.0-100.0)
== END ==
LOC: SKLAB8 07:00
PROVIDERS: ATTEND Internal Medicine
DX: N19 Unspecified kidney failure (principal); Z79.899 Other long term (current) drug therapy

== ENCOUNTER → 2021-05-08 | Outpatient (REF) | payer MEDICARE | LOC: SKLAB8 10:00 | PROVIDERS: ATTEND Internal Medicine | DX: Z20.822 Contact with and (suspected) exposure to COVID-19 (principal) ==

== ENCOUNTER → 2021-05-12 | Outpatient (REF) | payer MEDICARE | LOC: SKLAB8 07:17 | PROVIDERS: ATTEND Internal Medicine | DX: Z20.822 Contact with and (suspected) exposure to COVID-19 (principal) ==

== ENCOUNTER → 2021-05-15 | Outpatient (REF) | payer MEDICARE | LOC: SKLAB8 05:38 | PROVIDERS: ATTEND Internal Medicine | DX: Z20.822 Contact with and (suspected) exposure to COVID-19 (principal) ==

== ENCOUNTER → 2021-05-19 | Outpatient (REF) | payer MEDICARE | LOC: SKLAB8 06:18 | PROVIDERS: ATTEND Internal Medicine | DX: Z20.822 Contact with and (suspected) exposure to COVID-19 (principal) ==

== ENCOUNTER → 2021-05-22 | Outpatient (REF) | payer MEDICARE | LOC: SKLAB8 06:32 | PROVIDERS: ATTEND Internal Medicine | DX: Z20.822 Contact with and (suspected) exposure to COVID-19 (principal) ==

== ENCOUNTER → 2021-05-28 | Outpatient (REF) | payer MEDICARE | LOC: SKLAB8 06:17 | PROVIDERS: ATTEND Internal Medicine | DX: Z20.822 Contact with and (suspected) exposure to COVID-19 (principal) ==

== ENCOUNTER → 2021-06-04 | Outpatient (REF) | payer MEDICARE | LOC: SKLAB8 08:25 | PROVIDERS: ATTEND Internal Medicine | DX: Z20.822 Contact with and (suspected) exposure to COVID-19 (principal) ==

== ENCOUNTER → 2021-06-25 | Outpatient (REF) | payer MEDICARE | LOC: SKLAB8 08:31 | PROVIDERS: ATTEND Internal Medicine | DX: Z20.822 Contact with and (suspected) exposure to COVID-19 (principal) ==

== ENCOUNTER → 2021-07-02 | Outpatient (REF) | payer MEDICARE | LOC: SKLAB8 14:22 | PROVIDERS: ATTEND Internal Medicine | DX: Z20.822 Contact with and (suspected) exposure to COVID-19 (principal) ==

== ENCOUNTER → 2021-07-09 | Outpatient (REF) | payer MEDICARE | LOC: SKLAB8 14:42 | PROVIDERS: ATTEND Internal Medicine | DX: Z20.822 Contact with and (suspected) exposure to COVID-19 (principal) ==

== ENCOUNTER → 2021-07-16 | Outpatient (REF) | payer MEDICARE | LOC: SKLAB8 14:17 | PROVIDERS: ATTEND Internal Medicine | DX: Z20.822 Contact with and (suspected) exposure to COVID-19 (principal) ==

== ENCOUNTER → 2021-07-23 | Outpatient (REF) | payer MEDICARE ==
[~2021-07-23] MED LIST changes: +LOSA50TA28 PO; -LOSA50TA88 PO
== END ==
LOC: SKLAB8 06:02
PROVIDERS: ATTEND Internal Medicine
DX: Z20.822 Contact with and (suspected) exposure to COVID-19 (principal)